=== PATIENT | male | born 1965 | race Caucasian/White ===

== ENCOUNTER 2017-07-28 05:50 | Outpatient (CLI) | payer OTHER ==
[~2017-07-28] VITALS: Ht 185.4 cm; Wt 109.8 kg
== END 2017-07-28 15:44 | disposition home or self-care (01) ==
LOC: PREOP 05:50
PROVIDERS: ATTEND Surgery
DX: Z01.818 Encounter for other preprocedural examination (principal)

== ENCOUNTER 2017-08-04 09:21 | Day surgery (SDC) | payer OTHER ==
[~2017-08-04] VITALS: Ht 185.4 cm; Wt 109.8 kg
--- OUTSIDE RECORDS SUMMARY | 2017-08-04 09:24 | XMS REPORT ---
Author KIRK Saravia [facility] eClinicalWorks Address Unknown Phone Unavailable Care Team Providers Care Director Business Travel Name Role Phone KIRK HILL CP Unavailable Allergies, Adverse Reactions, Alerts Substance Reaction Event Type N.K.D.A. Info Not Available Non Drug Allergy Problems Problem Type Condition Code Onset Dates Condition Status Assessment Acute otitis media, bilateral H66.93 Active Medications Medication Code System Code Instructions Start Date End Date Status Dosage Amoxicillin [facility] [address]-19 500 MG Orally 3 times a day Jan 04, 2015 Jan 14, 2015 1 tablet Multivitamin [facility] [id number] not defined Procedures Procedure Coding System Code Date Office Visit, New Pt., Level 3 CPT-4 18851 Jan 04, 2015 Vital Signs Date/Time: Jan 04, 2015 Temperature 97.4 F Weight 245.0 lbs Height 73 in BMI 32.32 Index Blood Pressure Diastolic 88 mmHg Blood Pressure Systolic 124 mmHg Cardiac Monitoring Heart Rate 82 bpm Results No Known Results Summary Purpose eClinicalWorks Submission
--- OUTSIDE RECORDS SUMMARY | 2017-08-04 09:24 | XMS REPORT ---
Author Author JACQUIE SKINNER [facility] Address [address] [place] [address] Care Team Providers Care Lining Repairer Name Role Phone JACQUIE SKINNER Unavailable PROBLEMS Unknown Problems ALLERGIES Substance Reaction Event Type Date Status Ibuprofen heart palpatations Drug Allergy Apr, Active SOCIAL HISTORY Never Assessed PLAN OF CARE Activity Details Follow Up if not improving with PCP or reg follow up. prn Reason: VITAL SIGNS Height 73 in 2016-05-15 Weight 253.4 lbs 2016-05-15 Temperature 101.0 degrees Fahrenheit 2016-05-15 Heart Rate 80 bpm 2016-05-15 Respiratory Rate 18 2016-05-15 BMI 33.43 kg/m2 2016-05-15 Blood pressure systolic 144 mmHg 2016-05-15 Blood pressure diastolic 90 mmHg 2016-05-15 MEDICATIONS Medication Instructions Dosage Frequency Start Date End Date Duration Status Zithromax 250 MG Orally Once a day 2 tablets on the first day, then 1 tablet daily for 4 days 24h Apr, Apr, 5 day(s) Active Tamiflu 75 MG Orally Twice a day 1 capsule 12h Apr, 5 day(s) Active RESULTS Name Result Date Reference Range INFLUENZA A & B (IN HOUSE) 2016-05-15 INFLUENZA A Negative INFLUENZA B POSITIVE Control + Lot # [id number] Exp date PROCEDURES Procedure Date Ordered Result Body Site INFLUENZA ASSAY W/OPTIC May 15, 2016 IMMUNIZATIONS No Known Immunizations MEDICAL (GENERAL) HISTORY Type Description Date Surgical History pilonidal cyst excision 2011
[2017-08-04 09:35] VITALS: BP 114/102
[2017-08-04] MEDS ORDERED: LACTATED RINGERS 1,000 ML IV ONE (09:40)
[2017-08-04] MEDS ORDERED: LACTATED RINGERS 1,000 ML IV PRN (09:45)
--- NOTE | 2017-08-04 10:37 | Progress Note-Pre Operative ---
Pre-Operative Progress Note H&P Reviewed The H&P was reviewed, patient examined and no changes noted. Date Seen by Provider: Aug 04, 2017 Time Seen by Provider: 10:37 Date H&P Reviewed: Aug 04, 2017 Time H&P Reviewed: 10:37 Pre-Operative Diagnosis: blood in stools, change in caliber stools ALBINA JUAREZ DO Aug 04, 2017 10:37
[2017-08-04] MEDS ORDERED: MIDAZOLAM 5 MG/5 ML (VERSED) VIAL ONE (10:51)
[2017-08-04] MEDS ORDERED: PROPOFOL INJECTION 50 ML IV ONE (10:51)
--- NOTE | 2017-08-04 11:37 | Progress Note-Post Operative ---
Post-Operative Progess Note Surgeon (s)/City Designer (s) Surgeon ALBINA JUAREZ DO City Designer: na Pre-Operative Diagnosis blood in stools, change in caliber stools Post-Operative Diagnosis colon polyps x 3 Procedure & Operative Findings Date of Procedure 08/04/17 Procedure Performed/Findings colonoscopy c hot bx polypectomy x 3 Anesthesia Type per mda Estimated Blood Loss Estimated blood loss (mL): none Specimens/Packing Specimens Removed transverse colon polyps x 3 ALBINA JUAREZ DO Aug 04, 2017 11:37
--- NOTE | 2017-08-04 11:38 | Discharge Inst-Simple/Standard ---
Discharge Inst-Standard Discharge Medications New, Converted or Re-Newed RX: RX on Chart Patient Instructions/Follow Up Plan of Care/Instructions/FU: Caleb 2 weeks Activity as Tolerated: Yes Discharge Diet: Regular Diet (high fiber) ALBINA JUAREZ DO Aug 04, 2017 11:38
[2017-08-04 11:55] VITALS: BP 111/71
--- NOTE | 2017-08-04 12:36 | Anesthesia-General Post-Op ---
MAC Patient Condition Mental Status/LOC: Same as Preop Cardiovascular: Satisfactory Nausea/Vomiting: Absent Respiratory: Satisfactory Pain: Controlled Complications: Absent Post Op Complications Complications None Follow Up Care/Instructions Patient Instructions None needed. Anesthesiology Discharge Order Discharge Order Patient is doing well, no complaints, stable vital signs, no apparent adverse anesthesia problems. No complications reported per nursing. SHAHIDA ACOSTA CRNA Aug 04, 2017 12:36
[2017-08-04 13:00] VITALS: BP_SYST 111; BP_SYST 131; BP_DIAS 71; BP_DIAS 89
--- NOTE | 2017-08-04 18:05 | OPERATIVE REPORT ---
DATE OF SERVICE: 08/04/2017 PREOPERATIVE DIAGNOSES: Blood in stool, change in caliber of stools. POSTOPERATIVE DIAGNOSIS: Colon polyps x3. PROCEDURE: Colonoscopy with hot biopsy polypectomy x3. SURGEON: Albina Ellis DO ANESTHESIA: Per MDA. ESTIMATED BLOOD LOSS: None. COMPLICATIONS: None. INDICATIONS: The patient is a 52-year-old male with blood in the stools. He understands risks and benefits of procedure and wished to proceed with procedure. Consent was signed in the chart. DESCRIPTION OF PROCEDURE: The patient was taken to the endoscopy suite, placed in left lateral recumbent position. Timeout was performed. Digital rectal exam was performed. There were no palpable polyps, mass or ulcerations. The scope was inserted in the rectum, advanced all the way to the cecum with minimal difficulty. Prep was adequate. Scope was then slowly retracted back. There were no polyps, masses or ulcerations in the cecum and ascending colon. In the transverse colon, there was polyps, which hot biopsy polypectomies were performed on these. in one same specimen. These were in the more proximal transverse colon. There were no other polyps, mass or ulceration of the transverse colon, descending and sigmoid colon. Once in the rectum, scope was also retroflexed noting no other pathology except for some hemorrhoidal disease. Scope was returned to its normal position, slowly withdrawn until completely removed. The patient tolerated procedure well without any complications and taken to the recovery room in stable condition. RECOMMENDATIONS: The patient will follow up in the office in 2 weeks to discuss pathology results. We would recommend repeat colonoscopy in 3 to 5 years. If he has any problems prior to that, he should be reevaluated at that time. Job ID: [id number] DocumentID: [id number] Dictated Date: 08/04/2017 11:41:37 Dog Walker Date: 08/04/2017 18:05:10 Dictated By: ALBINA ELLIS DO
== END 2017-08-04 13:15 | disposition home or self-care (01) ==
LOC: ENDO 09:21
PROVIDERS: ATTEND Surgery
DX: K92.1 Melena (principal); D12.3 Benign neoplasm of transverse colon; R19.5 Other fecal abnormalities; K64.9 Unspecified hemorrhoids
CPT/HCPCS: 88305

== ENCOUNTER 2022-09-10 16:59 | Emergency (ER) | payer MEDICAID, OTHER ==
[~2022-09-10] VITALS: Ht 180 cm; Wt 86.1 kg
--- NOTE | 2022-09-10 17:25 | ED Syncope ---
General Chief Complaint: Dizziness/Syncope Stated Complaint: SYNCOPE Nursing Triage Note: PT PRESENTS TO ED VIA EMS WITH C/O SNYCOPAL EPISODE AFTER WALKING ABOUT 27 BLOCKS OUTSIDE. PT VERY DIAPHORETIC, BUT STATES THAT'S FROM THE WALK. PT STATES THIS IS THE FOURTH SYNCOPAL EPISODE THIS YEAR. PT A&O X 4 AT TIME OF TRIAGE. Source of Information: Patient Exam Limitations: No Limitations History of Present Illness Date Seen by Provider: Sep 10, 2022 Time Seen by Provider: 17:05 Initial Comments 57-year-old male presents to the ER via EMS after a syncopal episode. He states that he was walking 27 blocks this evening to go get supper. He states that his vision started to get blurry, he went to sit in the shade and the next thing he knew he woke up on the ground. States that he scraped his elbow, denies any other injury, denies hitting his head, denies any pain. He reports that this morning he woke up around 3 AM and had 6 episodes of nonbloody diarrhea. He reports that around 9 AM he walked 56 blocks for exercise. He states that after he walked he drank six 20 ounce bottles of water. States that he last ate at 8 AM, states he ate [employer] mushroom soup. He reports that he has had 4 episodes of syncope since February of this year. He was not seen for the other syncopal episodes. He denies headache, dizziness, chest pain, shortness of air, abdominal pain, nausea, vomiting, dysuria. Allergies and Home Medications Allergies Coded Allergies: ibuprofen (Verified Allergy, Unknown, severe tachycardia, 07/28/17) Patient Home Medication List Home Medication List Reviewed: Yes No Active Prescriptions or Reported Meds Review of Systems Constitutional: see HPI Past Wxgjzfm-Jrhzdo-Gmzmnm Hx Patient Social History Tobacco Use?: Yes Tobacco type used: Pipe Smoking Status: Current Everyday Smoker Substance use?: No Alcohol Use?: No Pt feels they are or have been: No Seasonal Allergies Seasonal Allergies: Yes Past Medical History Arthritis Physical Exam Vital Signs Vital Signs - First Documented 09/10/22 17:02 Temp 35.6 Pulse 117 Resp 18 B/P (MAP) 95/72 (80) Pulse Ox 98 O2 Delivery Room Air Capillary Refill : Height, Weight, BMI Height: 6'1.00" Weight: 242lbs. 0.0oz. 109.078393zi; 26.00 BMI Method: General Appearance: No Apparent Distress, WD/WN HEENT: PERRL/EOMI, TMs Normal Neck: Normal Inspection, Supple Cardiovascular: Regular Rate, Rhythm Respiratory: Lungs Clear, Normal Breath Sounds, No Accessory Muscle Use, No Respiratory Distress Extremities: Normal Inspection, Normal Range of Motion Neurologic/Psychiatric: Alert, Oriented x3, No Motor/Sensory Deficits, Normal Mood/Affect, transformation coach II-XII Norm as Tested Cranial Nerves: Normal Hearing, Normal Speech, PERRL Motor/Sensory: No Motor Deficit, No Sensory Deficit Skin: Normal Color, Diaphoresis Progress/Results/Core Measures Results/Orders Lab Results Laboratory Tests Test 09/10/22 17:05 09/10/22 17:14 Range/Units White Blood Count 8.6 4.3-11.0 10^3/uL Red Blood Count 5.53 H 4.30-5.52 10^6/uL Hemoglobin 16.9 13.3-17.7 g/dL Hematocrit 50 40-54 % Mean Corpuscular Volume 91 80-99 fL Mean Corpuscular Hemoglobin 31 25-34 pg Mean Corpuscular Hemoglobin Concent 34 32-36 g/dL Red Cell Distribution Width 13.5 10.0-14.5 % Platelet Count 130 130-400 10^3/uL Mean Platelet Volume 11.7 9.0-12.2 fL Immature Granulocyte % (Auto) 0 % Neutrophils (%) (Auto) 60 42-75 % Lymphocytes (%) (Auto) 31 12-44 % Monocytes (%) (Auto) 7 0-12 % Eosinophils (%) (Auto) 1 0-10 % Basophils (%) (Auto) 1 0-10 % Neutrophils # (Auto) 5.1 1.8-7.8 10^3/uL Lymphocytes # (Auto) 2.7 1.0-4.0 10^3/uL Monocytes # (Auto) 0.6 0.0-1.0 10^3/uL Eosinophils # (Auto) 0.1 0.0-0.3 10^3/uL Basophils # (Auto) 0.1 0.0-0.1 10^3/uL Immature Granulocyte # (Auto) 0.0 0.0-0.1 10^3/uL Percent Immature Platelet Fraction 8.7 H 0.0-7.6 % Sodium Level 141 135-145 MMOL/L Potassium Level 4.4 3.6-5.0 MMOL/L Chloride Level 113 H 98-107 MMOL/L Carbon Dioxide Level 16 L 21-32 MMOL/L Anion Gap 12 5-14 MMOL/L Blood Urea Nitrogen 17 7-18 MG/DL Creatinine 1.45 H 0.60-1.30 MG/DL Estimat Glomerular Filtration Rate 57 BUN/Creatinine Ratio 12 Glucose Level 95 70-105 MG/DL Calcium Level 9.6 8.5-10.1 MG/DL Corrected Calcium 9.8 8.5-10.1 MG/DL Magnesium Level 2.3 1.6-2.4 MG/DL Total Bilirubin 0.8 0.1-1.0 MG/DL Aspartate Amino Transf (AST/SGOT) 20 5-34 U/L Alanine Aminotransferase (ALT/SGPT) 16 0-55 U/L Alkaline Phosphatase 84 40-136 U/L Total Protein 7.9 6.4-8.2 GM/DL Albumin 3.8 3.2-4.5 GM/DL Glucometer 92 70-110 MG/DL My Orders Orders - MIKAYLA DU APRN Ekg Tracing (09/10/22 17:09) Accucheck Stat ONCE (09/10/22 17:09) Cbc With Automated Diff (09/10/22 17:19) Magnesium (09/10/22 17:19) Comprehensive Metabolic Panel (09/10/22 17:19) Ed Iv/Invasive Line Start (09/10/22 17:19) Ns Iv 1000 Ml (Sodium Chloride 0.9%) (09/10/22 17:45) Vital Signs/I&O 09/10/22 09/10/22 17:02 19:37 Temp 35.6 Pulse 117 72 Resp 18 18 B/P (MAP) 95/72 (80) 128/89 Pulse Ox 98 100 O2 Delivery Room Air Room Air Blood Pressure Mean: 80 Progress Progress Note : Progress Note Patient seen and evaluated, resting comfortably in bed, no acute distress, covered in sweat. Based on exam and symptoms, work-up initiated including CBC, CMP, magnesium, EKG, Accu-Chek. Patient already receiving IV fluids from EMS. Will hold off on ordering any more fluids since blood pressure and heart rate has already shown some improvement with minimal IV fluids. 1741 Labs reviewed. Accu-Chek was 92. CBC grossly normal. CMP shows elevated chloride 113, decreased CO2 16, elevated creatinine 1.45, decreased GFR 57, normal BUN 17. Second liter of IV fluids ordered. Patient has not had any blood work done here for comparison. Patient denies known history of chronic kidney disease or decreased kidney function. Results discussed with patient. Will discharge after second liter of fluid. Discharge instructions and return precautions provided. Initial ECG Impression Date: Sep 10, 2022 Initial ECG Impression Time: 17:21 Initial ECG Rate: 102 Initial ECG Rhythm: S.Tach Initial ECG Intervals: Normal Initial ECG Impression: Normal Initial ECG Comparisson: No Previous ECG Available Departure Impression Primary Impression: Syncope Qualified Codes: T67.1XXA - Heat syncope, initial encounter Additional Impressions: Dehydration Decreased renal function Disposition: 01 HOME, SELF-CARE Condition: Stable Departure-Patient Inst. Decision time for Depature: 19:15 Referrals: [facility] (PCP) Primary Care Physician Patient Instructions: Syncope (Fainting) (DC) Add. Discharge Instructions: Follow-up with your primary care provider next week regarding your decreased kidney function. You should also discuss the syncopal episodes with your primary care provider. Call [facility] and ask for help with transportation to your appointments. Make sure you are staying hydrated. Drink plenty water, stay away from caffeinated, high sugar beverages. Make sure you are eating plenty. If you want to continue to walk for exercise, you need to do it in the boiler helper and late evening when it is cooler outside. Return for chest pain, shortness of air, vision changes, or any other new, concerning, or worsening symptoms. All discharge instructions reviewed with patient and/or family. Voiced understanding. Scripts No Active Prescriptions or Reported Meds Copy Copies To 1: [facility]/MIKAYLA THORNE APRN Sep 10, 2022 17:25
[2022-09-10 17:27] LABS: ALBUMIN 3.8 GM/DL (3.2-4.5); BASOPHILS # (AUTO) 0.1 10^3/uL (0.0-0.1); BASOPHILS % (AUTO) 1 % (0-10); EOSINOPHILS # (AUTO) 0.1 10^3/uL (0.0-0.3); EOSINOPHILS % (AUTO) 1 % (0-10); HEMATOCRIT 50 % (40-54); HEMOGLOBIN 16.9 g/dL (13.3-17.7); LYMPHOCYTES # (AUTO) 2.7 10^3/uL (1.0-4.0); LYMPHOCYTES % (AUTO) 31 % (12-44); MEAN CORPUSCULAR HEMOGLOBIN 31 pg (25-34); MEAN CORPUSCULAR HGB CONC 34 g/dL (32-36); MEAN CORPUSCULAR VOLUME 91 fL (80-99); MEAN PLATELET VOLUME 11.7 fL (9.0-12.2); MONOCYTES # (AUTO) 0.6 10^3/uL (0.0-1.0); MONOCYTES % (AUTO) 7 % (0-12); NEUTROPHILS # (AUTO) 5.1 10^3/uL (1.8-7.8); NEUTROPHILS % (AUTO) 60 % (42-75); PLATELET COUNT 130 10^3/uL (130-400); POTASSIUM 4.4 MMOL/L (3.6-5.0); WHITE BLOOD COUNT 8.6 10^3/uL (4.3-11.0)
[2022-09-10 17:28] LABS: CALCIUM 9.6 MG/DL (8.5-10.1)
[2022-09-10 17:29] LABS: TOTAL PROTEIN 7.9 GM/DL (6.4-8.2)
[2022-09-10 17:31] LABS: BILIRUBIN,TOTAL 0.8 MG/DL (0.1-1.0)
[2022-09-10 17:33] LABS: CREATININE SERUM 1.45 MG/DL (0.60-1.30)
[2022-09-10 17:36] LABS: MAGNESIUM 2.3 MG/DL (1.6-2.4)
[2022-09-10] MEDS ORDERED: NS IV 1000 ML 1,000 ML IV SCH (17:45)
[2022-09-10 19:37] VITALS: BP 128/89
== END 2022-09-10 19:37 | disposition home or self-care (01) ==
LOC: EDUNIT# 16:59 → ER 17:00
DX: R55 Syncope and collapse (principal); E86.0 Dehydration; R94.4 Abnormal results of kidney function studies; R79.89 Other specified abnormal findings of blood chemistry; F17.290 Nicotine dependence, other tobacco product, uncomplicated
CPT/HCPCS: 36415; 80053; 82947; 83735; 85025; 93005